=== PATIENT | female | born 1970 | race Caucasian/White ===

== ENCOUNTER 2020-08-22 17:15 | Emergency (ER) | payer BC, OTHER | END 2020-08-22 17:52 | disposition home or self-care (01) | LOC: BURERS 17:15 | DX: F19.239 Other psychoactive substance dependence with withdrawal, unspecified (principal); F32.9 Major depressive disorder, single episode, unspecified; Z79.899 Other long term (current) drug therapy | CPT/HCPCS: 99284 ==

== ENCOUNTER 2021-01-06 13:45 | Emergency (ER) | payer BC, OTHER ==
[2021-01-06] MEDS ORDERED: Acetaminophen 325 MG TAB ONE (14:09)
[2021-01-06] MEDS ORDERED: Ibuprofen 200 MG TAB ONE (14:09)
== END 2021-01-06 15:05 | disposition home or self-care (01) ==
LOC: BURERS 13:45
DX: S90.31XA Contusion of right foot, initial encounter (principal); W23.0XXA Caught, crushed, jammed, or pinched between moving objects, initial encounter